=== PATIENT | female | born 1995 | race Caucasian/White ===

== ENCOUNTER → 2018-06-10 16:15 | Outpatient (CLI) | payer SELFPAY ==
[2018-06-10 11:38] VITALS: BMI 30.8
== END ==
PROVIDERS: Referring Provider Obstetrics & Gynecology; Visit Provider Obstetrics & Gynecology
DX: Z34.83 Encounter for supervision of other normal pregnancy, third trimester (principal)
CPT/HCPCS: 87081

== ENCOUNTER 2020-05-14 22:47 | Emergency (ER) | payer SELFPAY ==
[2018-06-10 11:38] VITALS: BMI 30.8
[2020-05-14 22:48] VITALS: BP 124/81; PULSE 90; RESP 18; TEMP 36.4; O2SAT 99; BMI 25.5
--- NOTE | 2020-05-14 22:56 | US_ITS ---
HISTORY: Heavy bleeding and cramping since noon today. LMP 02/23/2020. 51 images. 2 cine clips. No comparison imaging. Findings: The first cine clip is in endovaginal image. It demonstrates a heterogeneous endometrium with fluid at the lower uterine segment, perhaps even extending into the internal cervical os and the endocervical canal. The second cine clip demonstrates the same as the first, but is more focal about the lower uterine segment and endocervical canal. No yolk sac or clearly defined embryo is perceived within the fluid within the endometrial canal or endocervical canal. Endovaginal imaging: The uterus is retroflexed. The uterus and cervix measure 9.6 x 5.3 x 6.6 cm. Myometrium is fairly homogeneous. Endometrial tissue is heterogeneous. Fluid is present at the lower uterine segment, perhaps already extending into the endocervical canal. No embryo is identified. No yolk sac is demonstrated. The right ovary measures 4 x 1.9 x 1.9 cm. Follicles are present on the right ovary. Color Doppler imaging demonstrates flow to the right ovarian parenchyma. The left ovary measures 3.7 x 2.2 x 2.9 cm. Follicles are present on the left ovary. Color Doppler imaging demonstrates flow to the left ovarian parenchyma. The endometrial stripe the uterine fundus is measured at 1.8 cm. No color Doppler imaging is provided over the endometrial stripe the lower uterine segment or the endocervical canal. US/Transvaginal w/Preg US IMPRESSION: No IUP demonstrated. Fluid within the lower uterine segment, perhaps even within the endocervical canal may represent a gestational sac within the process of being expelled from the uterus. Although the color Doppler images were not performed over the endometrial canal, I suspect that there may be retained products of conception. The probability of a normal IUP at believe is lobe. No ectopic perceived. Recommend follow-up quantitative beta hCG and repeat ultrasound as needed. at 0052 Reported and signed by: Alexy Griffith MD Electronically Signed: Alexy Griffith MD at 0:51 EST Tel , Service support ,
--- NOTE | 2020-05-14 23:01 | ED.VISSUMM ---
- ER Visit Summary Date of Service: 05/14/20 Chief Complaint: Vaginal bleeding, 10 weeks gestation History of Present Illness: The patient is a 24 F who presents with vaginal bleeding. She believes that she is having a miscarriage. She is G3, P2 at 10 weeks. She started bleeding today and is concerned she is having a miscarriage. She is having some pelvic discomfort. It is similar to her regular menstrual cycle. She took nothing for this pain. She does have some intermittent lightheadedness and dizziness. She denies any other symptoms. She has never had a miscarriage previously. Physical Examination: Vital signs reviewed. HEENT exam unremarkable. Heart is regular rate and rhythm without murmurs. Lungs are clear to auscultation. Abdomen is soft and nontender. Genitourinary exam reveals moderate active bleeding. The cervical os is open. There is some tissue present in the vaginal canal as well as large clots. Extremities reveal no edema. Skin exam normal. Neurologic exam normal. Test Results: WBC count is 13. Hemoglobin is 13.3. She is O+. HCG quant is 3636. Ultrasound shows no IUP. There is no ectopic . Emergency Department Course and Treatment: The patient remained hemodynamically stable. I did discuss with Dr. Tariq with [facility] after my pelvic exam. She recommended the ultrasound and labs and call her with the results. She then came and evaluated the patient. She is going to administer cytotec to the patient. The bleeding has slowed. The patient will be discharged to home and will follow up in the office on Saturday. Treatment Plan: [] Disposition: Discharge Impression: Complete This note was generated with EasyProve dictation software. It may contain incorrect words, spelling, and punctuation that were not noted in review of the chart prior to signing ED Disposition - Plan for ED Patient: Disposition: Home or Assisted Living Instructions: ED MISCARRIAGE Completed Referrals: Aviva Tariq MD [STAFF PHYSICIAN] -
[2020-05-14 23:29] VITALS: BP 105/74
[2020-05-14 23:37] LABS: Absolute Lymphocyte Count 2.37 X10^3/uL (0.83-4.51); Absolute Neutrophil Count 9.5 X10^3/uL (2.0-7.7); Basophil# 0.06 X10^3/uL; Basophil% 0.5 % (0-1); Eosinophil# 0.22 X10^3/uL; Eosinophils% 1.7 % (0-5); Hematocrit 39.4 % (37-47); Hemoglobin 13.3 g/dL (12.0-15.0); Lymphocyte # 2.37 X10^3/ul (4.0); Lymphocyte % 18.3 % (19-41); Mean Corp Hgb Conc 33.8 g/dL (32-36); Mean Corpuscular Hgb 30.1 pg (27.0-32.0); Mean Corpuscular Volume 89.1 fL (81-99); Mean Platelet Vol. 9.6 fl (6.2-12.0); Monocyte# 0.75 X10^3/uL; Monocyte% 5.8 % (0-10); NRBC Flagged by Analyzer 0 % (0-5); Neutrophil # 9.54 X10^3/uL (2.7-7.7); Neutrophil % 73.4 % (47-70); Platelet Count 313 K/mm3 (150-450); RBC Distribution Width CV 12.3 % (11.6-14.6); RBC Distribution Width SD 40.1 fl (35.1-43.9); Red Blood Count 4.42 M/mm3 (4.2-5.4)
[2020-05-14] MEDS: 0.9% Normal Saline 1,000 ML 999 ML IV (23:37)
[2020-05-15 00:03] LABS: hCG Titer Quant., Serum 3636 mIU/mL (1-3)
--- NOTE | 2020-05-15 01:44 | OB.TRI.HP_ITS ---
- Problem List (1) Complete Status: Acute History of Present Illness Date of Service: 05/15/20 Was patient seen by the physician?: Yes Reason For Visit: miscarriage Final KELLY Source: LMP History of Present Illness: 24-year-old at approximately 10 weeks presents with heavy vaginal bleeding increasing over the last few hours with large clots. Upon evaluation hCG level was 3300 and ultrasound showing a 1.8 cm lining with products releasing through the lower uterine segment. Patient passed a significant amount of tissue that will be sent to pathology for analysis. Hemoglobin is 13 upon presentation vital signs are within normal limits. Allergies penicillin G Allergy (Mild, Verified 05/14/20 22:50) Other Laboratory Studies: Laboratory Tests 05/14/20 05/14/20 05/14/20 Range/Units 23:05 23:05 23:05 WBC (4.4-11.0) K/mm3 RBC (4.2-5.4) M/mm3 Hgb (12.0-15.0) g/dL Hct (37-47) % MCV (81-99) fL MCH (27.0-32.0) pg MCHC (32-36) g/dL RDW Std Deviation (35.1-43.9) fl RDW Coeff of Thiago (11.6-14.6) % Plt Count (150-450) K/mm3 MPV (6.2-12.0) fl Immature Gran % (Auto) (0.0-0.9) % Neut % (Auto) (47-70) % Lymph % (Auto) (19-41) % Louisa % (Auto) (0-10) % Eos % (Auto) (0-5) % Baso % (Auto) (0-1) % Absolute Neuts (auto) (2.0-7.7) X10^3/uL Absolute Lymphs (auto) (0.83-4.51) X10^3/uL Nucleated RBC % (0-5) % HCG, Quant (1-3) mIU/mL Blood Type O POSITIVE Not Reportable Cancelled Antibody Screen NEGATIVE Not Reportable 05/14/20 05/14/20 Range/Units 23:05 23:05 WBC 13.0 H (4.4-11.0) K/mm3 RBC 4.42 (4.2-5.4) M/mm3 Hgb 13.3 (12.0-15.0) g/dL Hct 39.4 (37-47) % MCV 89.1 (81-99) fL MCH 30.1 (27.0-32.0) pg MCHC 33.8 (32-36) g/dL RDW Std Deviation 40.1 (35.1-43.9) fl RDW Coeff of Thiago 12.3 (11.6-14.6) % Plt Count 313 (150-450) K/mm3 MPV 9.6 (6.2-12.0) fl Immature Gran % (Auto) 0.300 (0.0-0.9) % Neut % (Auto) 73.4 H (47-70) % Lymph % (Auto) 18.3 L (19-41) % Louisa % (Auto) 5.8 (0-10) % Eos % (Auto) 1.7 (0-5) % Baso % (Auto) 0.5 (0-1) % Absolute Neuts (auto) 9.5 H (2.0-7.7) X10^3/uL Absolute Lymphs (auto) 2.37 (0.83-4.51) X10^3/uL Nucleated RBC % 0 (0-5) % HCG, Quant 3636 H (1-3) mIU/mL Blood Type Antibody Screen Review of Systems Constitutional: Denies: Fever, Malaise Eyes: Denies: Blurred vision, Vision Change HEENT: Denies: Head Aches, Visual Changes Cardiovascular: Denies: Chest Pain, Palpitations Respiratory: Denies: Cough, Shortness of Breath, Wheezing Gastrointestinal: Reports: Abdominal Pain - Cramping. Denies: Diarrhea, Nausea, Vomiting Genitourinary: Denies: Dysuria, Hematuria Gynecological: Reports: Vaginal bleeding Musculoskeletal: Denies: Joint Pain, Muscle pain Skin: Denies: Lesions, Rash Neurological: Denies: Blurred vision, Focal weakness, Headaches Psychiatric: Denies: Anxiety, Depression Endocrine: Denies: Heat/ Cold Intolerance Hematologic/ Lymphatic: Denies: Easy Bruising, Easy Bleeding Physical Exam Vitals: Vital Signs Temp Pulse Resp BP Pulse Ox 97.6 F L 90 18 105/74 99 05/14/20 22:48 05/14/20 22:48 05/14/20 22:48 05/14/20 23:29 05/14/20 22:48 General: Alert, Oriented x3 HEENT: Atraumatic, Normocephalic Cardiovascular: Regular rate, Regular Rhythm, Normal S1, Normal S2, No murmurs Lungs: Clear to auscultation, Normal air movement Abdomen: Soft, Non Tender, Non-Distended Extremities:: No edema GRADUATE CIVIL ENGINEER: Normal external genitalia - Os open with clot present in the vagina but minimal active bleeding seen. Negative for: Vulvar lesions Impression/Plan 24-year-old status post complete miscarriage. Discussed with patient bleeding precautions and will give Cytotec now and for 24 hours for post miscarriage support. Plan follow-up in the office this week. I discussed the option of D&C however clinically she is stable and assessment favors complete spontaneous miscarriage. Patient and her agree and understand bleeding precautions Multi Select Codes - Visit Charges Office Visit/Consults: 24354 OV L3 New
--- NOTE | 2020-05-15 01:49 | POC_PTH ---
PATIENT: SUDHA LOJA LOC: ED U#:[id number] AGE/SX: 24/F ROOM: RE05/14/[address]: Dr. Alphonse Magallon MD : 1995 BED: DIS: 05/15/2020 SPEC #: [id number] RECD: 05/16/20 09:54 STATUS: MAXIMO MAYATere #: [id number] JOHNNIE: 05/15/20 01:[address]: Alphonse Magallon DEPT: SURGICAL PATHOLOGY RECD BY: Giselle Corss ENTERED: 05/16/20 09:54 SP TYPE: PROD CONC OTHR DR: No Primary Care Phys Tissues: Product of conception, NOS Procedures: Surgery Specimen Level IV HEADER OPERATION: Not noted PRE-OP DIAGNOSIS: Miscarriage TISSUE SUBMITTED: Products of conception MICROSCOPIC DIAGNOSIS Products of conception: Decidua, gestational endometrium and blood clots. See comment. YAMINI:getachew 05/18/2020 COMMENT Entire soft tissue and most of the blood clots are submitted. Chorionic villi are not identified. Results are reported to Dr. Tariq's office on 05/18/20. Clinical correlation and appropriate follow up are necessary. MICROSCOPIC DESCRIPTION Slides are reviewed. GROSS DESCRIPTION Received in fixative is one container labeled with the patient's name and designated POC. The specimen consists of a piece of pink hemorrhagic soft tissue measuring 5.5 x 4.5 x 0.5 cm. Also present in the container are multiple fragments of blood clot measuring in aggregate 7 x 6 x 2 cm. tissue is not identified. Agricultural Equipment Test Engineer sections from the hemorrhagic tissue are submitted in three cassettes. / SJ:getachew 05/16/20 More tissue is submitted in seven more cassettes, 4-10. / SJ:getachew 05/17/20 TC:5 CPT: 75360
[2020-05-15 01:58] VITALS: BP 119/77; PULSE 84; RESP 16; O2SAT 100
[2020-05-15 02:00] LABS: Pathology Specimen OB SEE PATHOLOGY REPORT
[2020-05-15] MEDS: miSOPROStol 200 MCG Tablet 800 MCG PO (02:16)
[2020-05-15] MEDS: Ibuprofen 400 MG Tablet 800 MG PO (02:17)
== END 2020-05-15 02:44 | disposition home or self-care (01) ==
PROVIDERS: Emergency Provider Emergency Medicine
DX: O03.9 Complete or unspecified spontaneous abortion without complication (principal)
CPT/HCPCS: 76817; 84702; 85025; 86850; 86900; 86901; 88305; 96360; 96361; 99285; J7030; A4216

== ENCOUNTER 2021-02-18 20:30 | Day surgery (SDC) | payer SELFPAY ==
--- NOTE | 2021-02-18 | POC_PTH ---
PATIENT: SUDHA LOJA LOC: [facility] U#:[id number] AGE/SX: 25/F ROOM: RE02/18/[address]: Dr. Aviva Tariq MD : 1995 BED: DIS: 02/19/2021 SPEC #: [id number] RECD: 02/19/21 00:40 STATUS: MAXIMO TREJOTere #: [id number] JOHNNIE: 02/18/21 00:[address]: Aviva Tariq DEPT: SURGICAL PATHOLOGY RECD BY: Kenan High ENTERED: 02/20/21 08:58 SP TYPE: PROD CONC OTHR DR: Jose Tomas PA-C Tissues: Product of conception, NOS Procedures: Surgery Specimen Level IV HEADER OPERATION: Suction dilation and curettage PRE-OP DIAGNOSIS: Incomplete TISSUE SUBMITTED: Retained products of conception MICROSCOPIC DIAGNOSIS Endometrium, curettage: Chorionic villi, decidualized stroma and trophoblastic cells consistent with retained products of conception. AM:getachew 02/21/2021 MICROSCOPIC DESCRIPTION Slides are reviewed. GROSS DESCRIPTION Received in fixative is one container labeled with the patient's name and designated retained products of conception. The specimen consists of multiple fragments of hemorrhagic soft tissue that in aggregate measure 8 x 8 x 3 cm. tissue is not identified. Sheriff'S Detective tissue is submitted in three cassettes. / SJ:getachew 02/20/21 TC:5 [facility]: [id number]
[2021-02-18 20:31] VITALS: BP 105/83; PULSE 112; RESP 16; TEMP 36.4; O2SAT 100; BMI 26.6
--- NOTE | 2021-02-18 20:50 | US_ITS ---
STUDY: ULTRASOUND OF THE FEMALE PELVIS - COMPLETE REASON FOR EXAM: Female, 25 years old. Heavy vaginal bleeding after recent loss TECHNIQUE: Transvaginal TECHNICAL QUALITY: Adequate. COMPARISON: None. FINDINGS: The uterus is retroverted and is in a midline position. The uterus measures 9.5 x 7.8 x 7.1 cm. Normal uterine cervix. The endometrium measures 33 mm in thickness, and is hyperechoic. Soft tissue vascular thickening of the endometrial canal measuring up to 33 mm. There is no demonstrated myometrial mass. I.U.D. - The patient does not have an I.U.D. The right ovary is visualized. The right ovary measures 4.1 x 2.2 x 2.4 cm. There is no right ovarian cyst or ovarian mass. There is no visualized right adnexal mass or complex lesion. There is normal arterial and normal venous vascularity. The left ovary is visualized. The left ovary measures 2.1 x 2.4 x 2.3 cm. There is no left ovarian cyst or ovarian mass. There is no visualized left adnexal mass or complex lesion. There is normal arterial and normal venous vascularity. There is no fluid in the cul-de-sac. US/Transvaginal w/Preg US IMPRESSION: 1. Endometrial thickening with increased vascularity suggesting possibility of retained products of conception. Electronically Signed: Eric Sol MD (Brooks) at 22:17 EST , Service support ,
--- NOTE | 2021-02-18 20:57 | EDS_ITS ---
HPI HPI - Female History of Present Illness Chief Complaint: Vag Bld, Preg Informant: patient and spouse/S.O. Pain Pain: Positive for Pelvic Pain Onset: Today Context: Gradual Onset Timing: Waxes and wanes Quality: Positive for Cramping Location: Suprapubic Current Severity: Moderate Maximum Severity: Severe Bleeding Issue: Positive for Vaginal bleeding Onset: Yesterday Context: - (Spotting yesterday, heavy bleeding this evening.) Associated Symptoms P: 2 Ab: 1 Narrative Narrative: Patient estimates she is approximately 12 weeks . She is reports having some mild spotting last evening and then about an hour and half prior to arrival had worsened cramping with large gushes of blood passed vaginally. 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 unemployed [facility] ED Constitutional Constitutional ED: Denies chills or fever(s) Eyes Eyes: Denies change in vision ENT ENT ED: Denies sore throat Cardiovascular Cardiovascular: Denies chest pain Respiratory/Chest Respiratory/Chest: Denies cough or dyspnea Gastrointestinal Gastrointestinal: Reports abdominal pain; Denies diarrhea, nausea or vomiting Genitourinary Genitourinary ED: Denies dysuria Musculoskeletal Musculoskeletal: Denies back pain Integumentary Denies rash Neurologic Neurologic: Denies headache(s) Allergic/Immunologic Allergic/Immunologic ED: Denies urticaria EXAM Physical Exam Const Vital Signs: 02/18/21 20:31 02/18/21 22:33 02/18/21 22:44 Temperature 97.6 F L 98.4 F 98.4 F Temperature Source Temporal Temporal Temporal Pulse Rate 112 H 95 104 H Respiratory Rate 16 18 18 Blood Pressure 105/83 H 108/59 L 108/59 L Blood Pressure Mean 90 75 75 Blood Pressure Source Monitor Blood Pressure Location Right Arm Pulse Ox 100 100 100 Oxygen Delivery Method Room Air Room Air Room Air Positive well nourished and well developed General Appearance ED: well developed and pallor HEENT Reports normocephalic and head/scalp atraumatic Eyes PERRL and EOMs intact bilaterally Neck supple Chest Wall inspection of chest normal and palpation of chest normal Resp normal respiratory effort and clear to auscultation bilaterally Cardio regular rhythm Rate: tachycardic GI Palpation: soft and tender suprapubic Narrative: Moderate bleeding with large clots noted on exam. Clots removed with forceps vaginal vault cleared with suction. Extremity normal to inspection Neuro oriented x3 Sensorium / Orientation: alert Psych mental status grossly normal Skin General Skin Exam: pallor MDM MDM MDM Narrative Medical decision making narrative: Patient was ordered 2 L IV fluid. Lab work including quant is obtained. Pelvic ultrasound ordered. Lab Data Attestation: I reviewed the patient's lab results. Labs: Laboratory Results - last 24 hr 02/18/21 02/18/21 02/18/21 20:55 20:55 20:55 WBC 9.9 RBC 3.61 L Hgb 10.9 L Hct 32.1 L MCV 88.9 MCH 30.2 MCHC 34.0 RDW Std Deviation 39.5 RDW Coeff of Thiago 12.1 Plt Count 258 MPV 9.4 Immature Gran % (Auto) 0.500 Neut % (Auto) 79.9 H Lymph % (Auto) 12.6 L Jewell % (Auto) 5.1 Eos % (Auto) 1.6 Baso % (Auto) 0.3 Absolute Neuts (auto) 7.9 H Absolute Lymphs (auto) 1.24 Nucleated RBC % 0 PT 13.3 INR 1.1 APTT 29.2 Sodium Potassium Chloride Carbon Dioxide Anion Gap BUN Creatinine Estim Creat Clear Calc Est GFR (MDRD) Af Amer Est GFR (MDRD) Non-Af BUN/Creatinine Ratio Glucose Calcium HCG, Quant 2318 H Blood Type Antibody Screen 02/18/21 02/18/21 20:55 20:55 WBC RBC Hgb Hct MCV MCH MCHC RDW Std Deviation RDW Coeff of Thiago Plt Count MPV Immature Gran % (Auto) Neut % (Auto) Lymph % (Auto) Jewell % (Auto) Eos % (Auto) Baso % (Auto) Absolute Neuts (auto) Absolute Lymphs (auto) Nucleated RBC % PT INR APTT Sodium 139 Potassium 3.1 L Chloride 110 H Carbon Dioxide 23.0 Anion Gap 6 BUN 6 L Creatinine 0.66 Estim Creat Clear Calc 125.61 Est GFR (MDRD) Af Amer 138 Est GFR (MDRD) Non-Af 114 BUN/Creatinine Ratio 9.0 L Glucose 134 H Calcium 8.5 HCG, Quant Blood Type O POSITIVE Antibody Screen NEGATIVE Radiography Diagnostic Testing: Clinical Impression(s) from Imaging Studies Obstetrics Ultrasound 02/18/21 20:50 IMPRESSION: 1. Endometrial thickening with increased vascularity suggesting possibility of retained products of conception. Electronically Signed: Eric Sol MD (Brooks) at 22:17 EST , Service support , Treatment and Re-Evaluation Comments:: Lab work reveals a hemoglobin of 10.9. Coags unremarkable. Pelvic ultrasound reveals endometrial thickening at 33 mm with increased vascularity suggesting potential retained products. I spoke with Dr. Vasquez who the patient has seen in the past. She presented to the emergency room to evaluate the patient. Plan will be to go to the OR for D&C tonight. Discharge Plan Triage Chief Complaint: Vag Bld, Preg ED Provider: Kika Lorenzo Dx/Rx/DC Orders Clinical Impression: Spontaneous miscarriage Prescriptions: No Action vitamin#30 30 mg iron-10 mg iron-folic acid 1 mg-omg3 capsule 30 mg iron-10 mg iron-1 mg capsule 1 cap PO DAILY RF: 0 Primary Care Provider: Jose Tomas Referrals: Jose Tomas DO [Primary Care Provider] - Disposition Disposition: Acute Care Hospital [facility]
[2021-02-18 21:09] LABS: Absolute Lymphocyte Count 1.24 X10^3/uL (0.83-4.51); Absolute Neutrophil Count 7.9 X10^3/uL (2.0-7.7); Basophil# 0.03 X10^3/uL; Basophil% 0.3 % (0-1); Eosinophil# 0.16 X10^3/uL; Eosinophils% 1.6 % (0-5); Hematocrit 32.1 % (37-47); Hemoglobin 10.9 g/dL (12.0-15.0); Lymphocyte # 1.24 X10^3/ul (0.83-4.51); Lymphocyte % 12.6 % (19-41); Mean Corpuscular Hgb 30.2 pg (27.0-32.0); Mean Corpuscular Volume 88.9 fL (81-99); Mean Platelet Vol. 9.4 fl (6.2-12.0); Monocyte% 5.1 % (0-10); NRBC Flagged by Analyzer 0 % (0-5); Neutrophil # 7.89 X10^3/uL (2.7-7.7); Neutrophil % 79.9 % (47-70); Platelet Count 258 K/mm3 (150-450); RBC Distribution Width CV 12.1 % (11.6-14.6); RBC Distribution Width SD 39.5 fl (35.1-43.9); Red Blood Count 3.61 M/mm3 (4.2-5.4); White Blood Count 9.9 K/mm3 (4.4-11.0)
[2021-02-18] MEDS: fentaNYL 100 MCG/2 ML Ampul 12.5 MCG IV (21:09)
[2021-02-18] MEDS: 0.9% Normal Saline 1,000 ML 1000 ML IV (21:09)
[2021-02-18 21:17] LABS: International Normalized Ratio 1.1; Prothrombin Time (Protime)PT. 13.3 SECONDS (11.7-14.9)
[2021-02-18 21:18] LABS: Partial Thromboplast Time 29.2 Seconds (24.1-36.2)
[2021-02-18 21:25] LABS: Anion Gap 6 (5-15); BUN 6 mg/dL (7-18); Calcium,Total 8.5 mg/dL (8.5-10.1); Chloride 110 mmol/L (98-107); Creatinine, Serum 0.66 mg/dL (0.55-1.02); EST Glomerular Filtration Rate 114 mL/min (>60); Est Glom Filt Rate - Afr Amer 138 mL/min (>60); Estimated Creatinine Clearance 125.61 ml/min; Glucose 134 mg/dL (74-106); Potassium 3.1 mmol/L (3.5-5.1); Sodium Level 139 mmol/L (136-145)
[2021-02-18 21:56] LABS: hCG Titer Quant., Serum 2318 mIU/mL (1-3)
[2021-02-18 22:33] VITALS: BP 108/59; PULSE 95; RESP 18; TEMP 36.9; O2SAT 100; BMI 26.6
[2021-02-18 22:44] VITALS: BP 108/59; PULSE 104; RESP 18; TEMP 36.9; O2SAT 100
--- NOTE | 2021-02-18 22:57 | HP.PCM_ITS ---
HPI - General HPI Narrative SUDHA LOJA, is a 25 F who presents with retained produ;cts after miscarrage. she was 12 weeks preganant and startedbleeding heavy at home, passed tissue and what looked like a small sac, with heavy bleeding, diziness and nausea after so she presented to the ER for evaluation. Ultrasound shows retained products with a 3 cm lining heterogenous and with vascularity. 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 Patient is unemployed ROS Review of Systems ROS Unobtainable: due to mental status and other Constitutional Constitutional: Reports systems reviewed and no addt'l complaints, except as documented; Denies as per HPI, change in weight, fatigue, fever(s), malaise, weakness or other Eyes Eyes: Reports systems reviewed and no addt'l complaints, except as documented; Denies as per HPI, change in vision or other ENT HEENT: Reports as per HPI and dizziness; Denies dry mouth, headache(s), loss taste/smell, nasal congestion, nasal discharge, neck pain, sore throat or other Respiratory/Chest Respiratory/Chest: Reports systems reviewed and no addt'l complaints, except as documented Gastrointestinal Gastrointestinal: Reports systems reviewed and no addt'l complaints, except as documented and nausea; Denies vomiting Musculoskeletal Musculoskeletal: Reports systems reviewed and no addt'l complaints, except as documented; Denies back pain or joint pain Neurologic Neurologic: Reports systems reviewed and no addt'l complaints, except as documented Psychiatric Psychiatric: Reports systems reviewed and no addt'l complaints, except as documented Endocrine Endocrinology: Reports systems reviewed and no addt'l complaints, except as documented Hematologic/Lymphatic Hematologic/Lymphatic: Reports systems reviewed and no addt'l complaints, except as documented Vital Signs Vital Signs Vital Signs: 02/18/21 20:31 02/18/21 22:33 02/18/21 22:44 Temperature 97.6 F L 98.4 F 98.4 F Temperature Source Temporal Temporal Temporal Pulse Rate 112 H 95 104 H Respiratory Rate 16 18 18 Blood Pressure 105/83 H 108/59 L 108/59 L Blood Pressure Mean 90 75 75 Blood Pressure Source Monitor Blood Pressure Location Right Arm Pulse Ox 100 100 100 Oxygen Delivery Method Room Air Room Air Room Air Weight Weight: 170 lb Body Mass Index (BMI) 26.6 Physical Exam Const alert, oriented x3 and no apparent distress HEENT normocephalic Head and Scalp: atraumatic Eyes EOMs intact bilaterally and conjunctivae normal Neck full ROM, no lymphadenopathy, supple and thyroid normal General: trachea midline Lymph Lymphatic: no lymphadenopathy noted Resp normal respiratory effort, no retractions, no use of accessory muscles and clear to auscultation bilaterally Cardio regular rhythm GI normal to inspection, nondistended, normoactive bowel sounds, soft to palpation, non-distended and no masses Inspection: Negative for abdominal distention Back/Spine no CVA tenderness Extremity normal to inspection Skin no rashes or lesions noted Neuro moves all extremities and deep tendon reflexes 2+ bilaterally Motor Exam: clonus absent Psych mental status grossly normal Results Lab / Micro Data Result Diagrams: 02/18/21 20:55 02/18/21 20:55 Labs: Laboratory Results - last 24 hr 02/18/21 20:55: WBC 9.9, RBC 3.61 L, Hgb 10.9 L, Hct 32.1 L, MCV 88.9, MCH 30.2, MCHC 34.0, RDW Std Deviation 39.5, RDW Coeff of Thiago 12.1, Plt Count 258, MPV 9.4, Immature Gran % (Auto) 0.500, Neut % (Auto) 79.9 H, Lymph % (Auto) 12.6 L, Radford % (Auto) 5.1, Eos % (Auto) 1.6, Baso % (Auto) 0.3, Absolute Neuts (auto) 7.9 H, Absolute Lymphs (auto) 1.24, Nucleated RBC % 0 02/18/21 20:55: HCG, Quant 2318 H 02/18/21 20:55: PT 13.3, INR 1.1, APTT 29.2 02/18/21 20:55: Sodium 139, Potassium 3.1 L, Chloride 110 H, Carbon Dioxide 23.0, Anion Gap 6, BUN 6 L, Creatinine 0.66, Estim Creat Clear Calc 125.61, Est GFR (MDRD) Af Amer 138, Est GFR (MDRD) Non-Af 114, BUN/Creatinine Ratio 9.0 L, Glucose 134 H, Calcium 8.5 02/18/21 20:55: Blood Type O POSITIVE, Antibody Screen NEGATIVE Radiology Impression Obstetrics Ultrasound 02/18/21 20:50 IMPRESSION: 1. Endometrial thickening with increased vascularity suggesting possibility of retained products of conception. Electronically Signed: Eric Sol MD (Brooks) at 22:17 EST , Service support , Assessment & Plan Assessment/Plan (1) Incomplete : PLAN: After discussing the patient's diagnosis and treatment plan options, patient wishes to proceed with surgical management. I have discussed with the patient the risks, benefits, and alternatives of the procedure which include but are not limited to risks of anesthesia, bleeding, infection, possible damage to bowel, bladder, or surrounding vasculature which could lead to additional surgery to evaluate any complications. Patient agrees to procedure and wishes to proceed. ACOG/uptodate references given for additional information regarding procedure. Charges/Coding Visit Charges Office Visits / Consults: 38669 ED Visit; High/Urgent Severity (taken for surgery same day)
[2021-02-18] MEDS: 0.9% Normal Saline 1,000 ML 999 ML IV (23:23)
[2021-02-18 23:37] VITALS: BP 104/59; PULSE 88; RESP 18; TEMP 36.9; O2SAT 100
--- NOTE | 2021-02-18 23:51 | OP.PCM_ITS ---
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 She was prepped and draped in the normal sterile fashion the dorsal lithotomy position. Bladder was drained of clear urine and anterior lip of the cervix was grasped and the uterus sounded to 10cm. Cervix was progressively dilated to allow passage of a 10mm suction curette. Progressive passes were made removing the retained products of conception without complication. Sharp curettage confirmed complete removal of the retained products. All instruments were removed from the vagina and excellent hemostasis was noted and the patient was taken to recovery in stable condition. Grafts/Implants Used: none Complications none Admit VTE Documentation VTE Present on Admission: No VTE Mechan Device Prophylaxis: SCD's Procedures Urinary/Genital [id number]: [id number] Trmt of incomplete Ab, any TM
--- NOTE | 2021-02-18 23:52 | PCM.DC ---
Discharge Instructions Diet Discharge Diet: No restrictions Activity Discharge Activity: Return to Normal Activity, May Shower and May Take a Tub Bath (after 1 week) May resume sexual activity in: 1-2 weeks Weight Bearing Status: Weight bearing as tolerated Lifting Restrictions: none Dressing / Incision Call your doctor if you observe: Fever of 101 or Higher, Using more than 1 pad per hour, Shortness of breath and Uncontrolled pain Follow Up Care Please Follow Up With: Aviva Tariq MD When: Call [phone] to schedule appointment. Test Results: Test results from this visit will be discussed in further detail at your follow-up appointment, if applicable. Discharge Plan Dx/Rx/DC Orders Clinical Impression: Spontaneous miscarriage Disposition Disposition: Acute Care Hospital [facility] Discharge Date/Time: 02/18/21 23:38
[2021-02-19 00:27] VITALS: BP 101/62; BP 104/59; PULSE 89; RESP 16; TEMP 36.4; O2SAT 100
[2021-02-19 00:30] VITALS: BP 104/59; BP 112/62; PULSE 92; RESP 16; O2SAT 99
[2021-02-19 00:35] VITALS: BP 104/59; BP 110/68; PULSE 89; RESP 16; O2SAT 100
[2021-02-19 00:40] VITALS: BP 104/59; BP 111/67; PULSE 89; RESP 16; O2SAT 100
[2021-02-19 00:45] VITALS: BP 104/59; BP 109/70; PULSE 88; RESP 16; TEMP 36.5; O2SAT 100
[2021-02-19] MEDS: miSOPROStol 200 MCG Tablet 1000 MCG PO (00:59)
[2021-02-19 01:10] VITALS: BP 104/59
== END 2021-02-19 02:29 | disposition home or self-care (01) ==
LOC: ED 23:09 → SDC 02-19 00:20 → ACINP 02-19 00:21
PROVIDERS: Emergency Provider Emergency Medicine; PCP Physician Assistant; Visit Provider Obstetrics & Gynecology
PROC: (CPT 59812; principal; 2021-02-18 22:50)
DX: O03.4 Incomplete spontaneous abortion without complication (principal); Z3A.12 12 weeks gestation of pregnancy
CPT/HCPCS: 01965; 59812; 76817; 80048; 84702; 85025; 85610; 85730; 86850; 86900; 86901; 88305; 99284; J7030; A4216; J2405